=== PATIENT | male | born 2000 | race Two or more races ===

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

== ENCOUNTER 2019-09-27 15:41 | Emergency (ER) | payer OTHER ==
[~2019-09-27] VITALS: Ht 165.1 cm; Wt 68.0 kg
== END 2019-09-27 17:11 | disposition home or self-care (01) ==
LOC: ED 15:41
DX: J02.9 Acute pharyngitis, unspecified (principal); F17.200 Nicotine dependence, unspecified, uncomplicated
CPT/HCPCS: 87081; 87880; 99283; C9803; U0002